=== PATIENT | female | born 1985 | race Two or more races ===

== ENCOUNTER 2017-06-23 18:08 | Emergency (ER) | payer OTHER, MEDICAID ==
[~2017-06-23] VITALS: Ht 167.6 cm; Wt 56.7 kg
[2017-06-23 18:08] VITALS: BP 125/88
== END 2017-06-23 19:02 | disposition home or self-care (01) ==
LOC: EDBD 18:10 → ER 18:10
DX: R20.2 Paresthesia of skin (principal); F41.9 Anxiety disorder, unspecified
CPT/HCPCS: 82962; 99283; A4606; Z7610